=== PATIENT | female | born 1940 | race Caucasian/White ===

== ENCOUNTER 2019-12-08 11:26 | Outpatient (RCR) | payer MEDICARE, BC, SELFPAY ==
[2019-12-08 12:19] LABS: Basophils # 0.1 10^3/uL (0.0-0.1); Basophils % 0.8 %; Eosinophils # 0.1 10^3/uL (0.0-0.8); Eosinophils % 0.9 %; Hematocrit 34.1 % (37.0-47.0); Hemoglobin 10.6 g/dL (11.5-15.3); Lymphocytes # 0.7 10^3/uL (0.8-4.8); Lymphocytes % 10.8 %; Mean Corpuscular HGB Conc 31.1 g/dL (30.0-36.0); Mean Corpuscular Hemoglobin 28.7 pg (28.0-34.0); Mean Corpuscular Volume 92.4 fL (81-99); Mean Platelet Volume 12.8 fL (7.4-10.4); Monocytes # 0.4 10^3/uL (0.2-0.9); Neutrophils # 5.2 10^3/uL (1.8-7.7); Neutrophils % 81.2 %; Nucleated Red Blood Cells % 0 %; Platelet Count 224 10^3/cmm (130-400); Red Blood Count 3.69 10^6/uL (4.1-5.3); Red Cell Distribution Width 13.4 % (12.1-15.1); White Blood Count 6.4 10^3/uL (4.0-10.0)
[2019-12-08 12:52] LABS: Anion Gap 15.4 (5-19); Blood Urea Nitrogen 24 mg/dL (8-23); Calcium 9.6 mg/dL (8.5-10.5); Carbon Dioxide 29 mmol/L (22-29); Chloride 101 mmol/L (98-107); Glucose 159 mg/dL (74-106); Osmolality Calculated 292 mOsm/kg (285-295); Potassium 4.4 mmol/L (3.5-5.1); Sodium 141 mmol/L (136-145)
== END 2019-12-15 23:59 | disposition home or self-care (01) ==
LOC: LAB 11:26
PROVIDERS: Family Provider Family Medicine; PCP Family Medicine; Visit Provider Nurse Practitioner Family
DX: Z01.89 Encounter for other specified special examinations (principal)
CPT/HCPCS: 80048; 85025

== ENCOUNTER 2024-02-01 08:16 | Inpatient (IN) | payer MEDICARE, BC, MEDICAID, SELFPAY ==
--- NOTE | 2024-02-01 08:18 | XR_ITS ---
WS: [id number] Portable AP semiupright chest, 02/01/2024 Clinical Data: dyspnea/cough Comparison: Portable chest, 11/12/2016. Findings: There is patchy opacity in both lower lobes more on the left than the right. No nodules, ma sses or effusions are seen. The heart is enlarged. The pulmonary vascularity is not increased. The ao rtic arch shows calcification. There are monitor leads on the chest wall. There is an anterior cervic al disc fusion. The distal right clavicle is absent. Impression: 1. Patchy opacity in both lower lobes which could represent atelectasis and/or pneumonia. 2. Cardiomegaly and atherosclerosis.
[2024-02-01 08:22] VITALS: BP 138/91; PULSE 88; RESP 32; O2SAT 93
--- NOTE | 2024-02-01 08:26 | ECG_ITS ---
[facility] Test Date: 2024-02-01 Pat Name: Kalyn Khan Department: Room: Gender: Female Home Health Caregiver: : 1940 Requested By: Sheldon Ackerman Order Number: [id number] Cuong MD: Filiberto Russell M.D. Measurements Intervals [place] Rate: 91 P: 89 WA: 132 QRS: 75 QRSD: 112 T: -32 QT: 390 QTc: 481 Interpretive Statements SINUS RHYTHM WITH OCCASIONAL ECTOPIC PREMATURE COMPLEXES LOW QRS VOLTAGE IN PRECORDIAL LEADS [QRS DEFLECTION < 1.0 mV IN CHEST LEADS] INCOMPLETE RIGHT BUNDLE BRANCH BLOCK [90+ ms QRS DURATION, TERMINAL R IN V1/V2, 40+ ms S IN I/aVL/V4/V5/V6] ANTEROSEPTAL MYOCARDIAL INFARCTION , PROBABLY RECENT [40+ ms Q WAVE IN V1-V4] Compared to ECG 11/12/2016 23:39:04 Low QRS voltage now present Incomplete right bundle-branch block now present Myocardial infarct finding now present T-wave abnormality no longer present Possible ischemia no longer present Electronically Signed On 02-01-2024 21:34:22 CDT by Filiberto Russell M.D. [email or web address]
[2024-02-01 08:30] LABS: ABG PCO2 21.4 mmHg (35-45); ABG PH Result 7.47 (7.35-7.45); Alveolar-Arterial Oxygen Gradi 6.1 mmHg (5-10); Arterial Blood Gas Hematocrit 37.7 % (37-47); Base Excess ABG -6.3 mmol/L (-2.0-2.0); Blood Gas Allen Test Pos; Blood Gas Operator Identificat WALCI; Blood Gas Sample Site Radial, right; Blood Gas Sample Type Arterial; HCO3 ABG 15.5 mmol/L (22-26); HGB O2 Sat 93.6 % (95-100); Ionized Calcium Level - ABG 1.1 mmol/L (1.1-1.4); Methemoglobin 0.8 % (0.4-1.5); Oxygen Device ROOM AIR; Oxygen Saturation ABG 95.4; PO2 ABG 75.1 mmHg (80.0-100.0); PO2 FiO2 Ratio Arterial Blood 0; Potassium Level - ABG 4.7 mmol/L (3.5-5.0); Total Hemoglobin 12.3 g/dL (12-16)
[2024-02-01 08:47] LABS: Basophils % 0.2 %; Hematocrit 41.4 % (36-47); Lymphocytes # 1.4 10^3/uL (0.8-4.8); Lymphocytes % 5.9 %; Mean Corpuscular HGB Conc 30.2 g/dL (30-55); Mean Corpuscular Volume 96.1 fl (85-98); Mean Platelet Volume 10.6 fL (7.4-10.4); Monocytes % 4.1 %; Neutrophils # 21.52 10^3/uL (1.8-7.7); Neutrophils % 88.3 %; Nucleated Red Blood Cells % 4.2 %; Platelet Count 132 10^3/cmm (157-399); Red Blood Count 4.31 10^6/uL (3.85-5.65); Red Cell Distribution Width 17.5 % (12.1-15.1); White Blood Count 24.35 10^3/uL (3.29-11.43)
--- NOTE | 2024-02-01 08:47 | ED_ITS ---
HPI - Altered Mental Status 2 General: Chief Complaint: Altered Mental Status Stated Complaint: AMS Time Seen by Provider: 02/01/24 08:18 History of Present Illness: 83-year-old female presents emergency ro om via EMS from a local retirement. Patient is Do Not Recussitate they reported that she is altered mental status of her typical baseline. She is nonresponsive except for moaning to painful stimuli however her vital signs are stable. Review of Systems 2 General: Reports: ROS unobtainable due to medical condition PFSH ED 2 PFSH: Medical History Carotid artery disease Hypertension Coronary artery disease Hyperlipidemia Surgical History History of coronary angioplasty with insertion of stent Physical Exam 2 HENMT: COMMON NORMALS: normocephalic, atraumatic and hearing grossly normal bilaterally HEAD & SCALP: normocephalic and atraumatic Resp: COMMON NORMALS: normal respiratory effort, No retractions and No use of accessory muscles Cardio: COMMON NORMALS: regular rate and regular rhythm RATE: regular rate RHYTHM: regular rhythm GI: COMMON NORMALS: Soft to palpation and No hepatosplenomegaly present A USCULTATION: Yes normoactive bowel sounds PALPATION: Yes Soft to palpation, No Tenderness to palpation present (GI), No Guarding due to palpation present (GI) and Yes No hepatosplenomegaly present Extremity: COMMON NORMALS: normal to inspection, capillary refill normal, no clubbing, cyanosis or edema, no calf tenderness and no pedal edema Skin: COMMON NORMALS: no rashes or lesions noted GENERAL SKIN EXAM: no rashes or lesions noted Course 2 Vital Signs: Vital signs: Vital Signs Temperature 97.7 F 02/02/24 03:12 Pulse Rate 80 02/02/24 03:12 Respiratory Rate 22 H 02/02/24 03:12 Blood Pressure 122/75 02/02/24 03:12 Pulse Oximetry 94 02/02/24 03:12 Oxygen Delivery Me thod Room Air 02/01/24 11:15 MDM - Altered Mental Status Medical Decision Making Initial EKG on arrival shows ST elevation in V45 and 6 consistent with a STEMI. Patient is Do Not Recussitate cording to her paperwork. There was a delay in aggressively treating because of the Do Not Recussitate status. We are attempting to contact the family to make sure they wanted us to proceed with the typical interventions. The phone numbers provided by the retirement initially no one answered 1 was disconnected. We were able to eventually get a hold of the daughter whose name is Radha from [place]. She was uncertain initially as to whether or not we should proceed and asked for some time to contact her brother. She called her brother who lives in [place]. They called back and advised this they would like us to proceed with full intervention. Dr. Roy initially responded to the STEMI alert we reviewed with him and he was waiting for the family to reply. After the daughter called back we contacted Dr. Roy again to let him know that the family has decided to proceed. Further labs came back after they gone to the Photo Machine Operator. Contact the Photo Machine Operator advised him for hypernatremia. We already cultured her and started on antibiotics Medical Records I reviewed the patient's medical records. Lab Data 02/01/24 08:32 02/01/24 08:32 Laboratory Results WBC 24.35 10^3/uL (3.29-11.43) H 02/01/24 08:32 RBC 4.31 10^6/uL (3.85-5.65) 02/01/24 08:32 Hgb 12.50 g/dL (11.27-16.99) 02/01/24 08:32 Hct 41.4 % (36-47) 02/01/24 08:32 MCV 96.1 fl (85-98) 02/01/24 08:32 MCH 29.0 pg (27-33) 02/01/24 08:32 MCHC 30.2 g/dL (30-55) 02/01/24 08:32 RDW 17.5 % (12.1-15.1) H 02/01/24 08:32 Plt Count 132 10^3/cmm (157-399) L 02/01/24 08:32 MPV 10.6 fL (7.4-10.4) H 02/01/24 08:32 Neut % (Auto) 88.3 % 02/01/24 08:32 Lymph % (Auto) 5.9 % 02/01/24 08:32 Potter % (Auto) 4.1 % 02/01/24 08:32 Eos % (Auto) 0.0 % 02/01/24 08:32 Baso % (Auto) 0.2 % 02/01/24 08:32 Neut # (Auto) 21.52 10^3/uL (1.8-7.7) H 02/01/24 08:32 Lymph # (Auto) 1.4 10^3/uL (0.8-4.8) 02/01/24 08:32 Potter # (Auto) 1.0 10^3/uL (0.2-0.9) H 02/01/24 08:32 Eos # (Auto) 0.0 10^3/uL (0.0-0.8) 02/01/24 08:32 Baso # (Auto) 0.0 10^3/uL (0.0-0.1) 02/01/24 08:32 Nucleated RBC % (auto) 4.2 % 02/01/24 08:32 Nucleated RBCs # 1.0 /100WBC 02/01/24 08:32 Specimen Type Arterial 02/01/24 08:19 Sample Site Radial, right 02/01/24 08:19 ABG pH 7.47 (7.35-7.45) H 02/01/24 08:19 ABG pCO2 21.4 mmHg (35-45) L 02/01/24 08:19 ABG pO2 75.1 mmHg (80.0-100.0) L 02/01/24 08:19 ABG PO2/FiO2 Ratio 0 02/01/24 08:19 ABG HCO3 15.5 mmol/L (22-26) L 02/01/24 08:19 ABG O2 Saturation 95.4 02/01/24 08:19 ABG Base Excess -6.3 mmol/L (-2.0-2.0) L 02/01/24 08:19 Gerry Test Pos 02/01/24 08:19 A-a O2 Gradient 6.1 mmHg (5-10) 02/01/24 08:19 Hematocrit 37.7 % (37-47) 02/01/24 08:19 Hgb O2 Saturation 93.6 % (95-100) L 02/01/24 08:19 Carboxyhemoglobin 1.0 %THgb (0.4-20.1) 02/01/24 08:19 Methemoglobin 0.8 % (0.4-1.5) 02/01/24 08:19 Total Hemoglobin 12.3 g/dL (12-16) 02/01/24 08:19 Sodium 167.0 mmol/L (131-143) H 02/01/24 08:19 Potassium 4.7 mmol/L (3.5-5.0) 02/01/24 08:19 Glucose 155.0 mg/dL (70-115) H 02/01/24 08:19 Ionized Calcium 1.1 mmol/L (1.1-1.4) 02/01/24 08:19 O2 Delivery Device Room air 02/01/24 08:19 FiO2 21.0 % 02/01/24 08:19 Bander Operator ID Walci 02/01/24 08:19 Sodium 163 mmol/L (136-145) H* 02/01/24 08:32 Potassium 4.9 mmol/L (3.5-5.1) 02/01/24 08:32 Chloride 126 mmol/L (98-107) H 02/01/24 08:32 Carbon Dioxide 18 mmol/L (22-29) L 02/01/24 08:32 Anion Gap 23.9 (5-19) H 02/01/24 08:32 BUN 138 mg/dL (8-23) H* D 02/01/24 08:32 Creatinine 3.8 mg/dL (0.5-0.9) H 02/01/24 08:32 GFR Calculation Not Reportable 02/01/24 08:32 Glucose 144 mg/dL (65-115) H 02/01/24 08:32 Calculated Osmolality 383 mOsm/kg (285-295) H 02/01/24 08:32 Lactic Acid 4.0 mmol/L (0.5-2.2) H 02/01/24 08:32 Calcium 8.3 mg/dL (8.5-10.5) L 02/01/24 08:32 Total Bilirubin 2.0 mg/dL (0.15-1.2) H 02/01/24 08:32 AST 1718 U/L (0-32) H 02/01/24 08:32 ALT 1427 U/L (0-33) H 02/01/24 08:32 Alkaline Phosphatase 188 U/L (35-105) H 02/01/24 08:32 Troponin T Baseline 650 ng/L (0-10) H* 02/01/24 08:32 Total Protein 6.6 g/dL (6.6-8.7) 02/01/24 08:32 Albumin 3.5 g/dL (3.5-5.2) 02/01/24 08:32 Globulin 3.1 g/dL (1.3-4.6) 02/01/24 08:32 All radiology interpretation(s) finalized by discharge Critical Care Time 2 Critical Care Time: Critical Care Time: Yes Total Critical Care Time: 40 Attestation: The high probability of a clinically significant, sudden or life threatening deterioration of the patient's cardiovascular endocrine renal system(s) required my full and direct attention, intervention and personal management. The critical care time is as shown. This time is in addition to time spent performing any reported procedures but includes the following: [x] Data and vital sign review and interpretation [x] Patient assessment, examination and intervention [x] Documentation [x] Medication orders and management Discharge Plan Discharge Patient Disposition: Admitted As Inpatient Admit Provider: Filiberto Russell Clinical Impression: STEMI (ST elevation myocardial infarction), Acute kidney injury, Dementia, Transaminitis, Altered mental status, Hypernatremia Condition: Stable Coding Level of Care Code ED Professional Architect for Son Curran
--- NOTE | 2024-02-01 08:48 | CT_ITS ---
WS: [id number] CT HEAD TECHNIQUE: Noncontrast CT of the head obtained from the skullbase to the vertex. CLINICAL INFORMATION: Altered mental status, nonresponsive COMPARISON: MRI 2015 DLP: 1100.[address] scans at [facility] use at least one of these dose optimization techniques: automated e xposure control; mA and/or kV adjustment per patient size (includes targeted exams where dose is matc hed to clinical indication); or iterative reconstruction. FINDINGS: No evidence of intracranial hemorrhage or mass effect. Ventricular system and basal cisterns are arizmendi nt. Mild small vessel changes with advanced parenchymal volume loss. Advanced atrophy temporal lobes and hippocampal formations. Intracranial vascular calcification. No extra-axial fluid collections. No evidence of mass or mass effect. Sphenoid sinusitis. IMPRESSION: 1. No evidence of intracranial hemorrhage or mass effect. 2. Mild small vessel changes. Advanced parenchymal volume loss. 3. Advanced progressed atrophy temporal lobes and hippocampal formations. 4. Mild sphenoid sinusitis. 5. No acute intracranial findings.
--- NOTE | 2024-02-01 08:54 | XACV_ITS ---
Exam Room: [facility] Wt: 113 kg Gender: Female : 1940 Exam Priority: Routine Procedure(s): Procedure Description: Diagnostic procedure Procedure Description: PCI procedure Procedure Description: PTCA Procedure Description: Coronary Angiography Diagnostic Cath Status: Emergency Diagnostic Findings * INDICATION: 83 year old female with past medical history of severe dementia is brought from nursing facility secondary to altered mental status. EKG is demonstrating ST elevations anterior and anterolateral leads with q waves. She does not give any history secondary to her mental status. ER physician spoke with family and initially they wanted to wait to make her decision. Later they called that they want everything to be done including coronary angiogram and aggressive measures and may change that as we have more information. I tried calling the daughter multiple times however she could not be reached. However I was able to speak to patient's son and code status for duration of procedure will be switched to full code as per discussion with family. * Left Main has no signfiicant disease. * Circumflex has no significant disease. * Right Coronary Artery has no significant disease. * Mid Left Anterior Descending: total occlusion, [facility]: 0 flow. * Coronary angiography shows right dominance. PCI Status: Emergency PCI Indication: Immediate PCI for STEMI Interventional Findings * Distal Left Anterior Descendin% stenosis treated with a AB TREK 2.50X12 RX BALLOON. 0% residual stenosis, [facility]: 3 flow. * PROCEDURE DETAIL: We engaged left main artery with XB 3.5 cardiac cath. IV heparin was administered to maintain anticoagulation. 0.014 run-through guidewire was used to cross the totally occluded mid LAD. We used 2.5 x 12 mm semicompliant balloon to perform multiple balloon dilations. However vessel had heavy thrombus burden that was organized secondary to delayed VT presentation and no flow could be restored. Dissection could not be ruled out however wire was going into side branches confirming true lumen placement distally. In the meanwhile patient's labs came back showed very high initial troponin confirming subacute to old VT, shock liver, severe LIZ. I called patient's family with the situation. Given her dementia, no intention of intubation post procedure/ initiating dialysis and current presentation involving multi organ failure, they decided to proceed with comfort care measures. At this time stopped further attempts at revascularization. Guide catheter and guide catheter were removed. 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 . * Mid Left Anterior Descendin% stenosis treated with a AB TREK 2.50X12 RX BALLOON. 0% residual stenosis, [facility]: 3 flow. Conclusions 1. Totally occluded mid LAD s/p balloon angioplasty. However flow could not be restored. 2. Late presentation of anterior VT as labs came back. Multiorgan failure. 3. Family decided to proceed with comfort care.. 4. Mid Left Anterior Descending was treated with a Balloon. 5. Distal Left Anterior Descending was treated with a Balloon. Recommendations * Patient's family has decided to proceed with comfort care as more information and lab work up came back and secondary to her dementia they do not want intubation, dialysis or any more aggressive measures. * We will consult medicine team to initiate comfort measures. Interventional RX Recommendation: PCI w/o planned CABG Diagnostic RX Recommendation: PCI w/o planned CABG Anticoagulation: Heparin Pressures Phase:Rest AO : 115 / 63 ( 79 ) @ 10:45:00 AM 89 / 70 ( 79 ) @ 10:49:00 AM 83 / 63 ( 73 ) @ 10:54:00 AM 99 / 73 ( 85 ) @ 10:57:00 AM 86 / 76 ( 78 ) @ 11:08:00 AM Clinical Evaluation EBL: 5mL-10mL Procedural Details Procedure Consent Obtained. Current Diagnosis : STEMI. Pre-Procedure Time Out. Identified patient by full name and date of as verbalized by the patient/guarantor. Does the consent match the physician's order: Yes. Accurate & Complete Informed Consent: Yes. Inpatient/Outpatient History & Physical on Chart: Yes. If H&P is completed, is and addenduem needed: No; If yes, is the addendum complete: N/A. Visualize and Verify Site with Patient/Guarantor: N/A. Relevant Radiology Images available: Yes. Pre-op teaching completed and patient verbalized understanding. The risks, benefits, and alternatives of sedation and/or procedure were discussed by physician. The patient agrees to continue. Procedure started. [facility] Clinical Fraility Score: 7: Severely Frail. Punch Machine Hand Indications: ACS <= 24 hours. Chest Pain Symptom Assessment: Atypical Angina. Cardiovascular Instability: Yes, if yes, Hemodynamic Instability. Correct patient, site and procedure confirmed by cath team. Current diagnosis: STEMI. PERRLA. Strong, equal hand forming process worker bilaterally. Lungs clear x 5 lobes. IV Fluids: 0.9% NaCl at KVO. 0 mL infused prior to slab lifting supervisor. bilateral groins was prepped with chloroprep then draped in the usual sterile fashion. Baseline sample Acquired. HR: 122 BPM. The aspirin was given rectally. IV Site on Arrival: 24 gauge in the left hand. IV Site on Arrival: 20 gauge in the right anticubital. Physician arrived. Physician scrubbed in. Immediate Pre-Procedure Time Out. Correct Patient: Yes; Correct Procedure: Yes; Correct Site: Yes; Correct Patient Position: Yes; Correct Supplies: Yes; Dried Flammable Prep: Yes; Blood Products Available: N/A;. Arterial access obtained with micropuncture set. 6 citizen [place] XB 3.5 guide catheter was inserted over the wire. Multiple views taken of left coronary artery. Runthrough guidewire was advanced through the guide catheter to lesion in the mid LAD. PCI Indication: STEMI. Inflation number : 1 A AB TREK 2.50X12 RX BALLOON was prepped and advanced across the Mid LAD , then inflated to 6 DEBBIE for 0:16 seconds. Inflation number: 2 The AB TREK 2.50X12 RX BALLOON was reinflated across the Mid LAD, to 6 DEBBIE for 0:08 seconds. Inflation number: 3 The AB TREK 2.50X12 RX BALLOON was reinflated across the Mid LAD, to 6 DEBBIE for 0:07 seconds. Inflation number: 4 The AB TREK 2.50X12 RX BALLOON was reinflated across the Mid LAD, to 8 DEBBIE for 0:10 seconds. Balloon out. Results checked. A second Runthrough guidewire was advanced through the guide catheter to lesion in the mid LAD. Inflation number: 5 The AB TREK 2.50X12 RX BALLOON was reinflated across the Mid LAD, to 8 DEBBIE for 0:07 seconds. Inflation number: 6 The AB TREK 2.50X12 RX BALLOON was reinflated across the Mid LAD, to 8 DEBBIE for 0:06 seconds. Inflation number: 7 The AB TREK 2.50X12 RX BALLOON was reinflated across the Mid LAD, to 10 DEBBIE for 0:12 seconds. Inflation number: 8 The AB TREK 2.50X12 RX BALLOON was reinflated across the Mid LAD, to 8 DEBBIE for 0:09 seconds. Balloon out. Results checked. The first Runthrough wire out. Inflation number: 9 The AB TREK 2.50X12 RX BALLOON was reinflated across the Mid LAD, to 8 DEBBIE for 0:09 seconds. Inflation number: 10 The AB TREK 2.50X12 RX BALLOON was reinflated across the Mid LAD, to 10 DEBBIE for 0:08 seconds. Inflation number: 12 The AB TREK 2.50X12 RX BALLOON was reinflated across the Mid LAD, to 10 DEBBIE for 0:09 seconds. Balloon out. Results checked. Inflation number: 1 The AB TREK 2.50X12 RX BALLOON was reinflated across the Dist LAD, to 6 DEBBIE for 0:12 seconds. Inflation number: 2 The AB TREK 2.50X12 RX BALLOON was reinflated across the Dist LAD, to 6 DEBBIE for 0:09 seconds. Inflation number: 3 The AB TREK 2.50X12 RX BALLOON was reinflated across the Dist LAD, to 6 DEBBIE for 0:12 seconds. Inflation number: 12 The AB TREK 2.50X12 RX BALLOON was reinflated across the Mid LAD, to 10 DEBBIE for 0:09 seconds. Inflation number: 13 The AB TREK 2.50X12 RX BALLOON was reinflated across the Mid LAD, to 10 DEBBIE for 0:08 seconds. Balloon out. Wire out. Results checked. Guide catheter out. A 5 citizen [place] JR4 catheter in over wire. Multiple views taken of right coronary artery. Catheter removed over the standard wire. A Right femoral angiogram was performed to determine safe placement of closure device. A Suture was successful obtaining hemostatsis at the Right Femoral artery insertion site. Post Procedure: Pulses reassessed and unchanged. PERRLA. Strong, equal hand forming process worker bilaterally. No VTE prophylaxis required. Vital chart was stopped. Medication's Wasted: Lidocaine 1% = 1 mL. Complications: None. Estimated blood loss: 5mL-10mL. Responsiveness - Normal response to verbal stimuli; alert and oriented, PERRLA. Airway - Unaffected, no intervention required; spontaneous ventilation. Circulation: W/N/L, pulses unchanged. Nausea/Vomiting: No. Procedure completed. PCI Indication : Immediate PCI for STEMI. Patient transferred by bed to ICU. Access Site Site: Right Femoral artery Sheath Size: 6 Fr Hemostasis Method: Suture Hemostasis Success: Successful Procedure Medications Start: 9:35 AM Stop: 9:35 AM Medication: Aspirin Amount: 300 mg Start: 9:47 AM Stop: 9:47 AM Medication: Heparin Amount: 6000 units Route: I.V. I, the attending physician, have reviewed and verified all procedure medications. Yes, all medications given per verbal order History/Risk Factors Hypertension: No Dyslipidemia: No Peripheral Arterial Disease (PAD): No Myocardial Infarction (VT): No Obesity: No Renal Disease: No Prior Interventions PCI: No CABG: No Valve Surgery: No Report Signatures Finalized by Filiberto Russell MD on 02/12/2024 09:55 AM
[2024-02-01] MEDS: nitroglycerin 1 gm/inch oint Pkt 0.5 INCH TOPICAL (09:01)
[2024-02-01] MEDS: heparin 5,000 unit/mL INJ 1 mL 4000 UNIT IVP (09:12)
[2024-02-01 09:13] LABS: Albumin Level 3.5 g/dL (3.5-5.2); Alkaline Phosphatase 188 U/L (35-105); Anion Gap 23.9 (5-19); Calcium 8.3 mg/dL (8.5-10.5); Carbon Dioxide 18 mmol/L (22-29); Chloride 126 mmol/L (98-107); Globulin 3.1 g/dL (1.3-4.6); Glucose 144 mg/dL (65-115); Potassium 4.9 mmol/L (3.5-5.1); Total Protein 6.6 g/dL (6.6-8.7)
--- NOTE | 2024-02-01 09:20 | P.HP_ITS ---
Providers/Chief Complaint 2 Admitting Physician: Filiberto Russell MD/ Interventional Cardiology Primary Care Provider: Tyler Rajan DO Chief Complaint: AMS History of Present Illness Kalyn Khan is a 83 year old female with past medical history of dementia is brought from nursing facility secondary to altered mental status. EKG is demonstrating ST elevations anterior and anterolateral leads with q waves. She does not give any history secondary to her mental status. ER physician spoke with family and initially they wanted to wait to make her decision. Later they called that they want everything to be done including coronary angiogram. I tried calling the daughter, Kandi, multiple times however she could not be reached. Her son later called and confirmed that for duration of procedure until we hear back from them again, they want her to be full code. Review of Systems 2 General: Reports: ROS unobtainable due to mental status Medications/Allergies Home Medications Medication Instructions Recorded Confirmed Last Taken Type acetaminophen 325 mg tablet 650 mg PO Q6H PRN pain or elevated 02/01/24 02/01/24 Unknown History temp albuterol sulfate 2.5 mg/3 mL 2.5 mg inhalation Q4H PRN 02/01/24 02/01/24 Unknown History (0.083 %) solution for nebulization Shortness Of Breath bisacodyl 10 mg rectal suppository 10 mg NV DAILY PRN Constipation 02/01/24 02/01/24 Unknown History donepezil 10 mg tablet 10 mg PO QPM 02/01/24 02/01/24 Unknown History magnesium hydroxide 400 mg/5 mL 5 ml PO DAILY PRN Constipation 02/01/24 02/01/24 Unknown History oral suspension (Milk of Magnesia) memantine 10 mg tablet 10 mg PO BID 02/01/24 02/01/24 Unknown History miconazole nitrate 2 % topical 1 applic topical Q8H PRN redness 02/01/24 02/01/24 Unknown History powder or irritation ondansetron HCl 4 mg tablet 4 mg PO Q4H PRN Nausea And Vomiting 02/01/24 02/01/24 Unknown History pantoprazole 40 mg tablet,delayed 40 mg PO DAILY 02/01/24 02/01/24 Unknown History release polyethylene glycol 3350 17 See Rx Instructions .Route .COMPLEX 02/01/24 02/01/24 Unknown History gram/dose oral powder (Miralax) sennosides 8.6 mg tablet (senna) 8.6 mg PO DAILY PRN Constipation 02/01/24 02/01/24 Unknown History sodium phosphates 19 gram-7 118 ml NV DAILY PRN Constipation 02/01/24 02/01/24 Unknown History gram/118 mL enema (Fleet Enema) Vitals/I&O/Wt Last Vital Signs Pulse 88 02/01/24 08:22 Resp 32 H 02/01/24 08:22 BP 138/91 02/01/24 08:22 Pulse Ox 93 02/01/24 08:22 O2 Del Method Nasal Cannula 02/01/24 08:22 Weight last 48 hrs Weight 250 lb Physical Exam 2 Narrative: GENERAL: Patient is confused, not oriented, no response to questions[] NECK: No jugular vein distension. [] HEENT: No cyanosis. No icterus. No pallor. [] HEART: Regular S1 and S2. No murmur, rub or gallop. [] LUNGS: Has bilateral diminished air entry CENTRAL NERVOUS SYSTEM: Grossly nonfocal. [] EXTREMITIES: Lower extremities with 1+ edema bilaterally Data 02/01/24 08:32 02/01/24 08:32 Micro: Microbiology 02/01/24 08:38 Blood Culture - Preliminary Blood SPECIMEN COLLECTED 02/01/24 08:32 Blood Culture - Preliminary Blood SPECIMEN COLLECTED A&P Assessment and plan (1) STEMI (ST elevation myocardial infarction): (2) Altered mental status: Plan Patient has altered mental status and does not give any significant history. EKG is showing ST elevations in anterior/anterolateral leads with q waves present. This may be old presentation of MO however as patient's history is not reliable/available, Family wants to do all aggressive measures. We will proceed with coronary angiogram after CT head to rule out head bleed. There is delay in procedure secondary to family making decision, need for head CT. Patient is getting NG tube to get medications including aspirin, plavix Heparin bolus given We will have medicine team on board for management of medical issues Attestations 2 Medical Necessity Statement*: Care expected to cross 2 midnights. Coding Level of Care Code Acute Code for [facility] Fwd Diagnoses STEMI (ST elevation myocardial infarction) I21.3 Altered mental status R41.82
[2024-02-01 09:24] LABS: Alanine Aminotransferase 1427 U/L (0-33)
[2024-02-01] MEDS: aspirin 325 mg Tablet PO (09:30)
[2024-02-01] MEDS: clopidogrel 300 mg Tablet 600 MG PO (09:30)
[2024-02-01 09:32] LABS: Aspartate Amino Transferase 1718 U/L (0-32); Blood Urea Nitrogen 138 mg/dL (8-23); Osmolality Calculated 383 mOsm/kg (285-295); Sodium 163 mmol/L (136-145)
--- NOTE | 2024-02-01 09:39 | ECG_ITS ---
[facility] Test Date: 2024-02-01 Pat Name: Kalyn Khan Department: Room: [facility] Gender: Female [employer] Chair: : 1940 Requested By: Sheldon Ackerman Order Number: [id number] Cuong MD: Filiberto Russell M.D. Measurements Intervals [place] Rate: 86 P: 0 [place]: 0 QRS: 74 QRSD: 110 T: -61 QT: 382 QTc: 457 Interpretive Statements SINUS RHYTHM WITH OCCASIONAL VENTRICULAR PREMATURE COMPLEXES LOW QRS VOLTAGE [QRS DEFLECTION < 0.5/1.0 mV IN LIMB/CHEST LEADS] INCOMPLETE RIGHT BUNDLE BRANCH BLOCK [90+ ms QRS DURATION, TERMINAL R IN V1/V2, 40+ ms S IN I/aVL/V4/V5/V6] ANTEROSEPTAL MYOCARDIAL INFARCTION , PROBABLY RECENT [40+ ms Q WAVE IN V1-V4] Compared to ECG 02/01/2024 08:26:49 Ventricular premature complex(es) now present Aberrant conduction of supraventricular beat(s) now present Sinus rhythm no longer present Myocardial infarct finding still present Electronically Signed On 02-01-2024 21:33:55 CDT by Filiberto Russell M.D. [id number]
--- NOTE | 2024-02-01 10:17 | PC.PHAR ---
PT IS FROM [facility]
[2024-02-01 10:38] LABS: Troponin(5th) Baseline 650 ng/L (0-10)
[2024-02-01 10:44] VITALS: BP 138/91; PULSE 88; RESP 32; O2SAT 93
[2024-02-01 11:02] LABS: Reflex Lactate Order REFLEX LACTIC ORDERD
--- NOTE | 2024-02-01 11:07 | P.CONIM_ITS ---
Providers/Reason For Consult 2 Consulting Physician/Specialty*: Bernardo Vazquez MD Hospitalist. Reason for Consult*: Medical Management Requesting Physician: Yvonne Attending Physician: Filiberto Russell M.D Primary Care Provider: Tyler Rajan DO History of Present Illness History of Present Illness Kalyn Khan is a 83 year old female presenting from [facility] to the emergency department with decreased responsiveness, decreased p.o. intake. She was alerted as a STEMI, and taken to angiogram lab by Dr. Marino. From his report to me, mid LAD was occluded, which was passed with a wire and ballooned but would not stay open. It was thought this was probably a subacute closure but not acute. Please see his report when done, regarding specifics and more accurate description. Nursing facility reports she has had a slight cough over the weekend, a chest x- ray was done demonstrating a small right pleural effusion. She had decreased p.o. intake as of yesterday around noon and was not significantly responsive today. There was reports her normal baseline is very confused, unable to carry on a significant conversation with people but does seem to talk to the air constantly. She has not taken care of any ADLs for many years. Review of Systems 2 General: Reports: ROS unobtainable due to medical condition Medications/Allergies Home Medications Medication Instructions Recorded Confirmed Last Taken Type acetaminophen 325 mg tablet 650 mg PO Q6H PRN pain or elevated 02/01/24 02/01/24 Unknown History temp albuterol sulfate 2.5 mg/3 mL 2.5 mg inhalation Q4H PRN 02/01/24 02/01/24 Unknown History (0.083 %) solution for nebulization Shortness Of Breath bisacodyl 10 mg rectal suppository 10 mg MD DAILY PRN Constipation 02/01/24 02/01/24 Unknown History donepezil 10 mg tablet 10 mg PO QPM 02/01/24 02/01/24 Unknown History magnesium hydroxide 400 mg/5 mL 5 ml PO DAILY PRN Constipation 02/01/24 02/01/24 Unknown History oral suspension (Milk of Magnesia) memantine 10 mg tablet 10 mg PO BID 02/01/24 02/01/24 Unknown History miconazole nitrate 2 % topical 1 applic topical Q8H PRN redness 02/01/24 02/01/24 Unknown History powder or irritation ondansetron HCl 4 mg tablet 4 mg PO Q4H PRN Nausea And Vomiting 02/01/24 02/01/24 Unknown History pantoprazole 40 mg tablet,delayed 40 mg PO DAILY 02/01/24 02/01/24 Unknown History release polyethylene glycol 3350 17 See Rx Instructions .Route .COMPLEX 02/01/24 02/01/24 Unknown History gram/dose oral powder (Miralax) sennosides 8.6 mg tablet (senna) 8.6 mg PO DAILY PRN Constipation 02/01/24 02/01/24 Unknown History sodium phosphates 19 gram-7 118 ml MD DAILY PRN Constipation 02/01/24 02/01/24 Unknown History gram/118 mL enema (Fleet Enema) PFSH Acute 2 PFSH: Medical History (Updated 02/01/24 @ 12:48 by Bernardo Vazquez MD) Carotid artery disease Hypertension Coronary artery disease Hyperlipidemia Surgical History (Updated 02/01/24 @ 12:44 by Bernardo Vazquez MD) History of coronary angioplasty with insertion of stent Other PFSH information: Supplemental PFSH Information: History limited from patient's secondary to severe dementia Vitals/I&O/Wt Last Vital Signs Pulse 88 02/01/24 10:44 Resp 32 H 02/01/24 10:44 BP 138/91 02/01/24 10:44 Pulse Ox 93 02/01/24 10:44 O2 Del Method Nasal Cannula 02/01/24 08:22 Weight last 48 hrs Weight 113.398 kg Physical Exam 2 Narrative: General exam is a demented female, who groans occasionally. HEENT: Oropharynx clear Neck is supple no lymphadenopathy thyromegaly Cardiovascular regular rate and rhythm with a 3/6 systolic murmur, mitral area Lungs coarse at the bases Abdomen soft. Bowel sounds are heard. No obvious organomegaly exam deferred Extremities 1+ edema bilaterally. No cyanosis or clubbing Neuro: No obvious gross deficits. Severely confused Skin no rash Data 02/01/24 08:32 02/01/24 08:32 Other Labs: ABG demonstrates pH 7.47, pCO2 21, pO2 75 on room air LFTs demonstrate a total bili of 2.0, AST 1718 ALT 1427 Alk phos 188 Albumin 3.5, calcium 8.3 Chest x-ray which I reviewed cardiomegaly and bibasilar infiltrates Head CT which I reviewed atrophy EKG which I reviewed demonstrates sinus rhythm, flipped T waves inferiorly and ST elevation V3 through 6. Incomplete right bundle is noted. Micro: Microbiology 02/01/24 08:38 Blood Culture - Preliminary Blood SPECIMEN COLLECTED 02/01/24 08:32 Blood Culture - Preliminary Blood SPECIMEN COLLECTED A&P Assessment and plan (1) STEMI (ST elevation myocardial infarction): Patient presents with ST elevation myocardial infarction Attempts at opening vessel mid LAD were not successful Patient was moved to ICU, for continued medical treatment. In discussion with family regarding rest of comorbidities after they were apparent on laboratory, and the fact that no intervention was successful regarding coronary disease, patient was made comfort measures. (2) Hypernatremia: Presumably secondary to decreased p.o. intake (3) Transaminitis: Concern this may be related to severely low ejection fraction (4) Acute kidney injury: Secondary to cardiorenal syndrome versus dehydration (5) Altered mental status: Patient presents with acute encephalopathy, superimposed on chronic severe dementia (6) Dementia: Patient with underlying severe dementia, reducing chance of improved outcome Plan I had a prolonged discussion with the family, and cardiology did as well. Considering multiple comorbidities, severe underlying dementia with unable to perform ADLs, family recommended at this point to proceed with comfort measures. Therefore full CODE STATUS has been amended to DNR per family's instructions, and the patient can transition to the second floor under comfort measures. If comfort can be achieved, could consider discharge back to nursing facility on comfort if appropriate. Thank you for this consultation I have facilitated appropriate orders for comfort measures. Consult Attestations 2 Medical Necessity Statement: As per primary Diagnoses STEMI (ST elevation myocardial infarction) I21.3 Hypernatremia E87.0 Transaminitis R74.01 Acute kidney injury N17.9 Altered mental status R41.82 Dementia F03.90 Time Spent (min) 56
--- NOTE | 2024-02-01 11:12 | PC.NURSE ---
Arrived from laboratory manager approximately 1030, AMS non responsive HCP came to bedside
--- NOTE | 2024-02-01 11:19 | ECG_ITS ---
[facility] Test Date: 2024-02-01 Pat Name: Kalyn Khan Department: Room: [facility]09 Gender: Female Hand Packager: : 1940 Requested By: Sheldon Ackerman Order Number: [id number] Cuong MD: Filiberto Russell M.D. Measurements Intervals [place] Rate: 83 P: 88 [place]: 134 QRS: 125 QRSD: 110 T: 237 QT: 405 QTc: 477 Interpretive Statements SINUS RHYTHM WITH OCCASIONAL VENTRICULAR PREMATURE COMPLEXES LOW QRS VOLTAGE [QRS DEFLECTION < 0.5/1.0 mV IN LIMB/CHEST LEADS] POSSIBLE RIGHT VENTRICULAR CONDUCTION DELAY [RSR (QR) IN V1/V2] ANTEROLATERAL MYOCARDIAL INFARCTION , PROBABLY RECENT [40+ ms Q WAVE IN I/aVL/V3-V6] Compared to ECG 02/01/2024 08:56:09 Atrial fibrillation no longer present Aberrant conduction of supraventricular beat(s) no longer present Incomplete right bundle-branch block no longer present Myocardial infarct finding still present Electronically Signed On 02-01-2024 21:39:16 CDT by Filiberto Russell M.D. [id number]
[2024-02-01 17:00] LABS: Partial Thromboplastin Time 65.8 SECONDS (23.9-36.7)
--- NOTE | 2024-02-01 17:18 | P.MISC_ITS ---
Miscellaneous Note Purpose of Documentation: BRIEF NOTE Note: Patient had presented with delayed presentation of anterior ST elevation DE. She can not give any history secondary to mental status. Chest pain could not be assessed. After ERs discussion with family over the phone, family wanted to proceed with aggressive measures. After CT head ruled out head bleed, she was brought to calibration laboratory technician. I could not reach family initially after several attempts was able to speak to her son. He changed code status to full code for duration of procedure. Coronary angiogram showed totally occluded mid LAD. Heavy clot burden with organized thrombus. We wired the occluded vessel and multiple balloon angioplasties were performed but no flow could be restored. In the meanwhile,labs came back and showed renal failure with creatinine of 3.8, sodium of 163, shock liver with LFTs in thousands and troponin of 650. This was consistent with delayed DE presentation. Lactic acid level was 4. We aborted further attempts at revascularization secondary to late presentation and heavy clot burden. I again spoke with family and described overall critical situation of patient with multiorgan failure, late presentation of DE and no yarsanism of flow (which would be of limited benefit given likely completion of infarct). I also discussed patient may need dialysis and possible intubation as needs fluid resuscitation and may develop pulmonary edema. Family demonstrated understanding and decided to proceed with comfort measures.
[2024-02-01] MEDS: morphine 4 mg/mL SDV 1 mL IVP ×2 (19:53→23:31)
[2024-02-01] MEDS: LORazepam 2 mg/mL INJ 1 mL IVP (20:34)
[2024-02-01 21:28] LABS: Partial Thromboplastin Time 28.8 SECONDS (23.9-36.7)
[2024-02-01 23:31] VITALS: RESP 24
--- NOTE | 2024-02-02 02:30 | PC.NURSE ---
Sheath pull at 2146. Maintained pressure for 20 minutes. No hematoma noted. No bleeding at site. Site dressed with 4x4 gauze and tegaderm bandage. Patient placed on comfort measures.
[2024-02-02 03:12] VITALS: BP 122/75; PULSE 80; RESP 22; TEMP 36.5; O2SAT 94
[2024-02-02] MEDS: LORazepam 2 mg/mL INJ 1 mL IVP (03:42)
--- NOTE | 2024-02-02 09:44 | P.PN_ITS ---
Subjective 2 Subjective: Kalyn appears comfortable. Nursing relates no issues. Medications: Reviewed: Yes Vitals/I&O/Wt Last Vital Signs Temp 97.7 F 02/02/24 03:12 Pulse 80 02/02/24 03:12 Resp 22 H 02/02/24 03:12 BP 122/75 02/02/24 03:12 Pulse Ox 94 02/02/24 03:12 O2 Del Method Room Air 02/01/24 11:15 02/01/24 02/02/24 02/02/24 22:59 06:59 14:59 Output Total 75 / 75 Balance -75 / -75 Weight last 48 hrs Weight 74.446 kg Weight 113.398 kg Physical Exam 2 Narrative: General exam is an unresponsive female, who appears comfortable, tachypnea noted Neck is supple no lymphadenopathy thyromegaly Cardiovascular regular rate and rhythm with a 3/6 systolic murmur, mitral area Lungs coarse at the bases Abdomen soft. Bowel sounds are heard. No obvious organomegaly Extremities 1+ edema bilaterally. No cyanosis or clubbing Urinary Catheter Management: Moon: Cath Placed During This Visit: yes Reason for Continuing Indwelling Catheter: Hospice/Comfort/Palliative Care Urinary Catheter Date of Insertion: 02/01/24 Urinary Catheter Time of Insertion: 21:00 Data 02/01/24 08:32 02/01/24 08:32 Micro: Microbiology 02/01/24 08:38 Blood Culture - Preliminary Blood NEGATIVE TO DATE 02/01/24 08:32 Blood Culture - Preliminary Blood NEGATIVE TO DATE A&P Assessment and plan (1) STEMI (ST elevation myocardial infarction): Patient presents with ST elevation myocardial infarction Attempts at opening vessel mid LAD were not successful Patient was moved to ICU, for continued medical treatment. In discussion with family regarding rest of comorbidities after they were apparent on laboratory, and the fact that no intervention was successful regarding coronary disease, patient was made comfort measures. (2) Hypernatremia: Presumably secondary to decreased p.o. intake (3) Transaminitis: Concern this may be related to severely low ejection fraction (4) Acute kidney injury: Secondary to cardiorenal syndrome versus dehydration (5) Altered mental status: Patient presents with acute encephalopathy, superimposed on chronic severe dementia (6) Dementia: Patient with underlying severe dementia, reducing chance of improved outcome Plan I had a prolonged discussion with the family, and cardiology did as well. Considering multiple comorbidities, severe underlying dementia with unable to perform ADLs, family recommended at this point to proceed with comfort measures. Therefore full CODE STATUS has been amended to DNR per family's instructions, and the patient can transition to the second floor under comfort measures. If comfort can be achieved, could consider discharge back to nursing facility on comfort if appropriate. Today patient appears comfortable, markedly tachypneic, with a saturation currently of 88% on room air. Condition has significantly worsened since yesterday. Last dose of morphine was last night. I suspect patient will continue to decline fairly rapidly. I had a discussion with her significant other today, regarding her current state. Thank you for this consultation I have facilitated appropriate orders for comfort measures. Attestations 2 Medical Necessity Statement*: As per primary Diagnoses STEMI (ST elevation myocardial infarction) I21.3 Hypernatremia E87.0 Transaminitis R74.01 Acute kidney injury N17.9 Altered mental status R41.82 Dementia F03.90 Time Spent (min) 21
--- NOTE | 2024-02-02 10:42 | P.PN_ITS ---
Subjective 2 Subjective: Patient seems comfortable. Tachypnic Vitals/I&O/Wt Last Vital Signs Temp 97.7 F 02/02/24 03:12 Pulse 80 02/02/24 03:12 Resp 22 H 02/02/24 03:12 BP 122/75 02/02/24 03:12 Pulse Ox 94 02/02/24 03:12 O2 Del Method Room Air 02/01/24 11:15 02/01/24 02/02/24 02/02/24 22:59 06:59 14:59 Output Total 75 / 75 Balance -75 / -75 Weight last 48 hrs Weight 164 lb 2 oz Weight 250 lb Physical Exam 2 Narrative: GENERAL: Patient is confused, not oriented, no response to questions[] NECK: No jugular vein distension. [] HEENT: No cyanosis. No icterus. No pallor. [] HEART: Regular S1 and S2. Grade 3/6 systolic murmur LUNGS: Has bilateral diminished air entry CENTRAL NERVOUS SYSTEM: Grossly nonfocal. [] EXTREMITIES: Lower extremities with 1+ edema bilaterally Urinary Catheter Management: Moon: Cath Placed During This Visit: yes Reason for Continuing Indwelling Catheter: Hospice/Comfort/Palliative Care Urinary Catheter Date of Insertion: 02/01/24 Urinary Catheter Time of Insertion: 21:00 Data 02/01/24 08:32 02/01/24 08:32 Micro: Microbiology 02/01/24 08:38 Blood Culture - Preliminary Blood NEGATIVE TO DATE 02/01/24 08:32 Blood Culture - Preliminary Blood NEGATIVE TO DATE A&P Assessment and plan (1) STEMI (ST elevation myocardial infarction): (2) Altered mental status: Plan Patient had occluded LAD with unknown duration of occlusion as does not give any history of chest pain. However process has been going on for a while with shock liver, renal failure, elevated troponin, Q waves on EKG. LAD was occluded in the mid segment however after multiple attempts with ballooning, no flow could be restored. Secondary to heavy thrombus burden with organized thrombus. Discussed with family cardiac situation and multiorgan failure, hypernatremia, possible need for dialysis/intubation if breathing worsens and they decided to proceed with comfort measures. They did not want aggressive measures. Medicine team on board for comfort measures. She appears comfortable. Attestations 2 Medical Necessity Statement*: Care expected to cross 2 midnights. Patient on comfort measures. Coding Level of Care Code Acute Code for Chg Fwd Diagnoses STEMI (ST elevation myocardial infarction) I21.3 Altered mental status R41.82
[2024-02-02] MEDS: morphine 4 mg/mL SDV 1 mL IVP (20:18)
[2024-02-02 20:26] VITALS: BP 80/51; PULSE 72; RESP 24; TEMP 36.6; O2SAT 89
[2024-02-03] MEDS: morphine 4 mg/mL SDV 1 mL IVP ×2 (01:25→04:44)
--- NOTE | 2024-02-03 08:15 | PM.PN ---
Subjective Subjective: Patient on comfort measures. Not responsive. Vitals/I&O/Wt Last Vital Signs Temp 97.8 F 02/02/24 20:26 Pulse 72 02/02/24 20:26 Resp 24 H 02/02/24 20:26 BP 80/51 02/02/24 20:26 Pulse Ox 89 L 02/02/24 20:26 O2 Del Method Room Air 02/01/24 11:15 02/02/24 02/03/24 02/03/24 22:59 06:59 14:59 Output Total 50 / 125 25 / 150 Balance -50 / -125 -25 / -150 Weight last 48 hrs Weight 163 lb 1 oz Weight 164 lb 2 oz Weight 250 lb Physical Exam Narrative: GENERAL: Patient is non-responsive NECK: No jugular vein distension. [] HEENT: No cyanosis. No icterus. No pallor. [] HEART: Regular S1 and S2. Grade 3/6 systolic murmur LUNGS: Has bilateral diminished air entry CENTRAL NERVOUS SYSTEM: Grossly nonfocal. [] EXTREMITIES: Lower extremities with 1+ edema bilaterally Urinary Catheter Management: Moon: Cath Placed During This Visit: yes Reason for Continuing Indwelling Catheter: Hospice/Comfort/Palliative Care Urinary Catheter Date of Insertion: 02/01/24 Urinary Catheter Time of Insertion: 21:00 Data 02/01/24 08:32 02/01/24 08:32 Micro: Microbiology 02/01/24 08:38 Blood Culture - Preliminary Blood NEGATIVE TO DATE 02/01/24 08:32 Blood Culture - Preliminary Blood NEGATIVE TO DATE A&P Assessment and plan (1) STEMI (ST elevation myocardial infarction): (2) Altered mental status: Plan Patient on comfort measures. Management per medicine team Please call with questions Attestations Medical Necessity Statement*: Care expected to cross 2 midnights. Coding Level of Care Code Acute Code for [facility] Diagnoses STEMI (ST elevation myocardial infarction) I21.3 Altered mental status R41.82
--- NOTE | 2024-02-03 10:23 | PC.NURSE ---
pt peacefully at 904.daughter kirk and significant other april,notified.[facility] home notified.
--- NOTE | 2024-02-03 11:20 | PM.DDS ---
Discharge Providers DDS Date of Admission: 02/01/24 10:30 Date Summary Completed: 02/03/24 Attending Provider at Admission: Filiberto Russell M.D Time of : 09:05 Attending Provider at Discharge: Filiberto Russell M.D Primary Care Provider: DO ARELI Rodriguez Diagnoses Hospital Diagnoses (1) STEMI (ST elevation myocardial infarction): (2) Altered mental status: Reason for Visit Reason for Visit AMS Summary Date and Time of Date of : 02/03/24 Time of : 09:05 Summary Summary: Patient is an 83-year-old nursing facility patient with significant end-stage dementia who presented to the hospital with decreased responsiveness. An ST elevation myocardial infarction was noted. She was taken to angiogram lab, where mid LAD demonstrated a lesion. Intervention was not successful. As intervention was occurring multiple labs came back which demonstrated multiorgan failure. Significant elevation of troponin, elevation of LFTs, elevation of creatinine was noted. Cardiology, as well as myself talk to the patient's family, and considering underlying severe dementia patient was changed to comfort measures. Comfort measures instituted, and she on February 02. Diagnosis of , acute myocardial infarction, multiorgan failure. Additional Data Advance directives?: No Discharge Plan Discharge Patient Disposition: Condition: Stable Prescriptions: No Action senna 8.6 mg Tablet 8.6 mg PO DAILY PRN (Reason: Constipation) acetaminophen 325 mg Tablet 650 mg PO Q6H PRN (Reason: pain or elevated temp) albuterol sulfate 2.5 mg /3 mL (0.083 %) Solution For Nebulization 2.5 mg INHALATION Q4H PRN (Reason: Shortness Of Breath) donepezil 10 mg tablet 10 mg PO QPM ondansetron HCl 4 mg Tablet 4 mg PO Q4H PRN (Reason: Nausea And Vomiting) miconazole nitrate 2 % Powder 1 applic TOPICAL Q8H PRN (Reason: redness or irritation) Milk of Magnesia 400 mg/5 mL Suspension 5 ml PO DAILY PRN (Reason: Constipation) bisacodyl 10 mg Suppository 10 mg PA DAILY PRN (Reason: Constipation) pantoprazole 40 mg tablet,delayed release (DR/EC) 40 mg PO DAILY Fleet Enema 19-7 gram/118 mL Enema 118 ml PA DAILY PRN (Reason: Constipation) Miralax 17 gram/dose Powder See Rx Instructions .ROUTE .COMPLEX Rx Instructions: Take 17 gram (1 capful) mix with 8 ounces of water or juice and drink entire liquid once daily as needed for constipation memantine 10 mg tablet 10 mg PO BID Referrals: Josue Hurley [Referring] - Patient Instructions: Altered Mental Status (ED) DS Attestations Time Spent in /Discharge Care*: greater than 30 min Quality - AMI: AMI present?: Yes Quality - Stroke: CVA present?: No Quality - VTE: VTE present?: No Coding Level of Care Code 34730 Total time (in minutes) for Discharge: 35 Diagnoses STEMI (ST elevation myocardial infarction) I21.3 Altered mental status R41.82
--- NOTE | 2024-02-03 11:58 | PC.NURSE ---
[facility] here to pick pt up.
== END 2024-02-03 09:05 | disposition expired | DRG 250 ==
LOC: ER 09:05 → CCL 09:17 → ICU 10:32 → CSU 19:16
PROVIDERS: Internal Medicine; Admitting Provider Internal Medicine; Emergency Provider Family Medicine; PCP Internal Medicine; Visit Provider Internal Medicine
PROC: 02703ZZ Dilation of Coronary Artery, One Artery, Percutaneous Approach (ICD-10-PCS; principal; 2024-02-01 08:45)
PROC: 02703ZZ Dilation of Coronary Artery, One Artery, Percutaneous Approach (ICD-10-PCS; 2024-02-01 08:45)
DX: I21.02 ST elevation (STEMI) myocardial infarction involving left anterior descending coronary artery (principal); K72.00 Acute and subacute hepatic failure without coma; J90 Pleural effusion, not elsewhere classified; E87.0 Hyperosmolality and hypernatremia; N17.9 Acute kidney failure, unspecified; F03.C0 Unspecified dementia, severe, without behavioral disturbance, psychotic disturbance, mood disturbance, and anxiety; I10 Essential (primary) hypertension; I25.10 Atherosclerotic heart disease of native coronary artery without angina pectoris; E78.5 Hyperlipidemia, unspecified; I13.10 Hypertensive heart and chronic kidney disease without heart failure, with stage 1 through stage 4 chronic kidney disease, or unspecified chronic kidney disease; N18.9 Chronic kidney disease, unspecified; E86.0 Dehydration; Z95.5 Presence of coronary angioplasty implant and graft; Z51.5 Encounter for palliative care
CPT/HCPCS: 36415; 36600; 51702; 70450; 71045; 80051; 80053; 82330; 82805; 83605; 84484; 85025; 85730; 87040; 92920; 93005; 93454; 96365; 96367; 96375; 96376; 99285; C1725; C1769; C1887; C1894; J1644; J2060; J2270; J7030; Q9967